=== PATIENT | female | born 1995 | race Caucasian/White ===

== ENCOUNTER 2021-07-24 07:32 | Outpatient (CLI) | payer OTHER | END 2021-07-24 07:42 | disposition home or self-care (01) | LOC: RAD 07:32 | DX: M54.2 Cervicalgia (principal); M54.6 Pain in thoracic spine; M54.51 Vertebrogenic low back pain ==

== ENCOUNTER 2021-08-08 08:14 | Outpatient (CLI) | payer OTHER | END 2021-08-08 08:28 | disposition home or self-care (01) | LOC: LAB 08:14 | PROVIDERS: ATTEND Dermatology | DX: E87.5 Hyperkalemia (principal) ==

== ENCOUNTER 2021-10-25 19:04 | Inpatient (IN) | payer OTHER ==
[~2021-10-25] VITALS: Ht 175.3 cm; Wt 74.8 kg
== END 2021-10-27 22:36 | disposition home or self-care (01) | DRG 343 ==
LOC: ER 19:04 → SEC-K 10-26 14:07 → O/R 10-26 14:07 → SURG 10-26 20:04
PROVIDERS: Surgery; ADMIT Internal Medicine; ATTEND Internal Medicine
PROC: BW21ZZZ Computerized Tomography (CT Scan) of Abdomen and Pelvis (ICD-10-PCS; 2021-10-26)
PROC: 0DTJ0ZZ Resection of Appendix, Open Approach (ICD-10-PCS; principal; 2021-10-26 18:15)
DX: K35.890 Other acute appendicitis without perforation or gangrene (principal); Z20.822 Contact with and (suspected) exposure to COVID-19